=== PATIENT | female | born 1970 | race Caucasian/White ===

== ENCOUNTER 2018-06-09 07:38 | Outpatient (CLI) | payer OTHER ==
[2018-06-09] MEDS ORDERED: Iopamidol 370 76% 100 ML VIAL ONE (09:00)
--- NOTE | 2018-06-09 09:37 | CT ---
CT OF THE ABDOMEN AND PELVIS WITH IV CONTRAST: Indication: Left lower quadrant abdominal pain, ongoing for 10 days. Contrast: 100 cc of Isovue 370 Comparison: None FINDINGS: Lung bases are clear. There is a small hiatal hernia. The gallbladder is surgically absent. The liver, pancreas, adrenal glands and right kidney are normal appearing. There is a 3 cm cyst involving the inferior pole of the left kidney. Small splenial is seen adjacent to the anterior margin of the spleen. No free fluid or enlarged lymph nodes are evident. There is a normal appendix in the right lower quadrant. There is a mild amount of retained stool within the colon. No drainable fluid collection is evident. Uterus, adnexa, rectum, and pararectal soft tissues appear within normal limits. No acute osseous abnormality is evident. IMPRESSION: 1. No CT explanation for the patient's left lower quadrant abdominal pain. 2. Mild amount of retained stool within the colon. 3. Left renal cyst. 4. Cholecystectomy. POS: [facility]
== END 2018-06-09 07:39 | disposition home or self-care (01) ==
LOC: SCSCT 07:38
PROVIDERS: ATTEND Internal Medicine
DX: R10.32 Left lower quadrant pain (principal); K59.00 Constipation, unspecified; N28.1 Cyst of kidney, acquired; Z90.49 Acquired absence of other specified parts of digestive tract
CPT/HCPCS: 74177

== ENCOUNTER 2019-05-14 15:48 | Outpatient (CLI) | payer OTHER ==
--- NOTE | 2019-05-14 16:47 | MMO ---
Bilateral MAMMO Bilat Screen [facility]. CLINICAL HISTORY: Patient is 49 years old and is seen for screening. The patient has no family history of breast cancer. The patient has no personal history of cancer. VIEWS: The views performed were: bilateral craniocaudal with tomosynthesis and bilateral mediolateral oblique with tomosynthesis. MAMMOGRAM FINDINGS: The breasts are heterogeneously dense, which could obscure a lesion on mammography. There are no suspicious masses, suspicious calcifications, or new areas of architectural distortion. IMPRESSION: THERE IS NO MAMMOGRAPHIC EVIDENCE OF MALIGNANCY. A ROUTINE FOLLOW-UP MAMMOGRAM IN 1 YEAR IS RECOMMENDED. THE RESULTS OF THIS EXAM WERE SENT TO THE PATIENT. ACR BI-RADS Category 1 - Negative MAMMOGRAPHY NOTE: 1. A negative mammogram report should not delay a biopsy if a dominant of clinically suspicious mass is present. 2. Approximately 10% to 15% of breast cancers are not detected by mammography. 3. Adenosis and dense breasts may obscure an underlying neoplasm. Reported by: JUSTIN SOSA MD Electonically Signed: [id number]
== END 2019-05-14 15:49 | disposition home or self-care (01) ==
LOC: BICMAMMO 15:48
PROVIDERS: ATTEND Internal Medicine
DX: Z12.31 Encounter for screening mammogram for malignant neoplasm of breast (principal)
CPT/HCPCS: 77063; 77067